=== PATIENT | male | born 1995 | race Caucasian/White ===

== ENCOUNTER 2017-02-08 21:06 | Inpatient (IN) | payer OTHER ==
[~2017-02-08] VITALS: Ht 175.3 cm; Wt 63.5 kg
[2017-02-09 02:00] VITALS: BP 131/70
--- NOTE | 2017-02-09 02:00 | NUR ---
INTAKE ASSESSMENT BP: 131/70 , HR:65, RR:16, SpO2: 100%, T:98 , pt denies pain Pt is in stable condition and able to be admitted on the unit. Unit protocols regarding medications and vital signs every 4 hours were explained. Pt verbalized understanding. Will continue admission upon arrival on the unit.
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
[2017-02-09 03:27] LABS: BASOPHILS % (AUTO) 0.5 % (0.0-2.0); EOSINOPHILS # (AUTO) 0.1 K/uL (0.0-0.7); EOSINOPHILS % (AUTO) 2.1 % (0.0-7.0); HEMATOCRIT 39.6 % (40-50); HEMOGLOBIN 13.9 G/DL (14.0-18.0); LYMPHOCYTES # (AUTO) 2.3 K/UL (0.8-4.8); LYMPHOCYTES % (AUTO) 40.7 % (20.5-51.5); MEAN CORPUSCULAR HGB CONC 35 g/dL (32.0-37.0); MEAN CORPUSCULAR VOLUME 91.1 FL (82.0-92.0); MONOCYTES # (AUTO) 0.5 K/UL (0.1-1.30); MONOCYTES % (AUTO) 9.5 % (0.0-11.0); NEUTROPHILS # (AUTO) 2.7 K/UL (1.8-8.9); NEUTROPHILS % (AUTO) 47.2 % (38.5-71.5); PLATELET COUNT (AUTO) 212 K/UL (150-450); RED BLOOD CELL COUNT(AUTO) 4.35 MIL/UL (4.7-6.1); WHITE BLOOD COUNT (AUTO) 5.6 K/UL (4.0-11.2)
[2017-02-09 03:57] LABS: *AMPHETAMINE, URINE NEGATIVE (NEGATIVE); *BARBITURATE, URINE NEGATIVE (NEGATIVE); *CANNABINOID, URINE NEGATIVE (NEGATIVE); *COCCAINE, URINE POSITIVE (NEGATIVE); *OPIATE, URINE POSITIVE (NEGATIVE); *PHENCYCLIDINE SCREEN,URINE NEGATIVE (NEGATIVE)
[2017-02-09 04:00] VITALS: BP 101/57
[2017-02-09 04:00] LABS: ALANINE AMINOTRANSFERASE 74 U/L (16-63); ALKALINE PHOSPHATASE 82 U/L (50-136); ASPARTATE AMINOTRANSFERASE 38 U/L (15-37); BILIRUBIN,TOTAL 0.7 mg/dL (0.2-1.0); CARBON DIOXIDE 33 mmol/L (21-32); CHLORIDE 102 mmol/L (98-107); GLUCOSE 110 mg/dL (74-106); POTASSIUM 3.6 mmol/L (3.5-5.1); TOTAL PROTEIN, SERUM 7.4 g/dL (6.4-8.2); UREA NITROGEN, BLOOD 10 mg/dL (7-18)
--- NOTE | 2017-02-09 04:00 | NUR ---
COWS DEFERRED COWS deferred. Pt is lying in bed with eyes closed noted to be asleep. Respirations 16, breathing is even and unlabored. Safety measures in place. Will monitor.
[2017-02-09 04:05] LABS: ETHANOL < 3 MG/DL (0-0)
--- NOTE | 2017-02-09 07:10 | NUR ---
END OF SHIFT Pt is a 22 year old male admitted on 02/09/17 for Heroin and Cocaine dependency. Pt is full code with NKA. He reports a PMHx of anxiety and depression (undiagnosed), tonsillectomy (age 13), left arm fracture (age 13). He did not receive or request any PRN medications. He slept a total of 4 hrs, Intake: 240mL, Void: x1, BM:0 COWS:1. Pt remains alert and oriented x4, breathing is even and unlabored. Safety measures in place. Endorsed to oncoming shift.
--- NOTE | 2017-02-09 07:30 | NUR ---
Start of shift note; Received report from night nurse. Patient is a 22 year old male admitted on 02/09/17 for Opiate dependence. Patient reported history of anxiety, depression, tonsillectomy. Patient is on full code status, NKA, on regular diet. Left AC closed abscess noted. Patient is on fall precautions. Bed in lowest position, call light within reach. Patient to start Subutex taper today depending on withdrawal symptoms. Will continue to monitor patient.
[2017-02-09 08:00] VITALS: BP 98/68
--- NOTE | 2017-02-09 09:30 | NUR ---
Nurse note; Patient is AOX4. Assessed patient. Patient's current COWS score is 6 manifested by sweating, muscle aches, runny nose, yawning. Patient's Subutex dose held per MD order d/t COWS score is <8. Will closely monitor patient. Addendum: 02/09/17 at 1142 by DAVID DRAPER LVN MD was notified.
--- NOTE | 2017-02-09 09:32 | NUR ---
Nurse note; Patient's UDS result came back positive for Benzodiazepine. Patient stated he used one time dose of Xanax prior to admission to [facility]. Patient denies dependence to Benzodiazepine. Patient also reported history of Hepatitis C. Will continue to monitor patient.
[2017-02-09 12:00] VITALS: BP 103/67
--- NOTE | 2017-02-09 13:13 | NUR ---
Nurse note; Patient is AOX4. Patient's current COWS score is 5 manifested by sweating, muscle aches, runny nose, yawning. Patient's Subutex dose held per MD order d/t COWS score is <8. Will closely monitor patient. MD was notified.
[2017-02-09 16:00] VITALS: BP 119/71
--- NOTE | 2017-02-09 19:30 | NUR ---
START OF SHIFT Patient is a 22 year old male admitted on 02/09/17 for Opiate dependence. Patient reported history of anxiety, depression, tonsillectomy. Patient is on full code status, NKA, on regular diet. Left AC closed abscess noted. Patient received in bed,A/O X 4. Patient has not received any Subutex today per day shift,his COWS score has been less than 8.Pt stated he might be ready for Subutex tonight.All safety measures in place. Bed is locked in the lowest position,side rails up x 2,call light within reach.Will continue to monitor.
--- NOTE | 2017-02-09 19:30 | NUR ---
End of shift note; Patient is AOX4. Patient is a 22 year old male admitted on 02/09/17 for Opiate dependence. Patient reported history of anxiety, depression, tonsillectomy. Patient is on full code status, NKA, on regular diet. Left AC closed abscess noted. Patient is on fall precautions. Bed in lowest position, call light within reach. Patient's Subutex doses were held due to COWS score is <8, MD was notified. All safety measures secured. Met all needs.
[2017-02-09 20:00] VITALS: BP 108/69
[2017-02-10] VITALS: BP 110/65
--- NOTE | 2017-02-10 00:51 | NUR ---
PRN MEDS PRN TYLENOL AND BENADRYL GIVEN ORDERED FOR C/O HEADACHE,5/10 AND INSOMNIA RESPECTIVELY.WILL MONITOR FOR EFFECTIVENESS.
--- NOTE | 2017-02-10 01:51 | NUR ---
PRN F/U PRN MEDS EFFECTIVE,PT IS RESTING IN BED WITH EYES CLOSED.NO S/S OF DISTRESS NOTED.
[2017-02-10 04:00] VITALS: BP 109/63
--- NOTE | 2017-02-10 06:49 | NUR ---
END OF SHIFT Patient is a 22 year old male admitted on 02/09/17 for Opiate dependence. Patient reported history of anxiety, depression, tonsillectomy. Patient is on full code status, NKA, on regular diet. Left AC closed abscess noted.Last COWS was 3.Pt started on Subutex last night,initial cows score was 9.PRN Benadryl and tylenol were given and were effective.Pt slept 9 hrs,fluid intake was 292 mls,voided x 1.All safety measures in place. Bed is locked in the lowest position,side rails up x 2,call light within reach.Will continue to monitor.
--- NOTE | 2017-02-10 07:50 | NUR ---
Start of shift note; Received report from night nurse. Patient is a 22 year old male admitted on 02/09/17 for Opiate dependence. Patient reported history of anxiety, depression, tonsillectomy. Patient is on full code status, NKA, on regular diet. Left AC closed abscess noted. Patient is on fall precautions. Bed in lowest position, call light within reach. Patient was placed on a 5 day Subutex taper. Patient's last COWS score is 9 at 2100. Will continue to monitor patient.
[2017-02-10 08:00] VITALS: BP 100/67
--- NOTE | 2017-02-10 09:00 | NUR ---
Nurse note; Re-evaluated patient's Left AC, small old closed abscess has improved. Patient denies pain. No necessary treatment noted. MD was notified upon admission.
[2017-02-10 09:06] LABS: HEPATITIS B SURFACE AG Negative (Negative)
--- NOTE | 2017-02-10 11:00 | NUR ---
MD communication; Patient was notified regarding Hep C result, patient to be educated by MD regarding results.
[2017-02-10 12:00] VITALS: BP 103/66
[2017-02-10 16:00] VITALS: BP 130/67
--- NOTE | 2017-02-10 18:40 | NUR ---
End of shift note; Patient is AOx4. Patient is a 22 year old male admitted on 02/09/17 for Opiate dependence. Patient reported history of anxiety, depression, tonsillectomy. Patient is on full code status, NKA, on regular diet. Patient remained compliant with treatment plan and medication regime. Medications were effective in reducing withdrawal symptoms. Patient's last COWS score is 6 at 1600. All safety measures secured. Met all needs.
--- NOTE | 2017-02-10 19:30 | NUR ---
START OF SHIFT Pt is a 22 y/o male admitted on 02/09/17 for opiate dependence. Pt was dependent on heroin 1 gm IV and cocaine 0.5 gm IV for the past 3 months. Pt also reports benzo usage x 1 prior to admission. Pt is full code, regular diet, NKA, and on fall precautions. Denies hx of seizures. Pt is on a 5 day Subutex taper, tolerating well. Pt reports PMH of anxiety and depression. Pt is on a 5 day Subutex taper, tolerating well. Upon assessment pt presents with increased HR, skin flushing, and moderate anxiety. Respirations 16, even and unlabored. Denies N/V/D. Denies chest pain or SOB. Medications due. Safety measures in place. Call light within reach. Will continue to monitor.
[2017-02-10 20:00] VITALS: BP 105/77
--- NOTE | 2017-02-10 22:56 | NUR ---
PRN BENADRYL 50 MG ADMINISTRATION Pt requests sleep aid, reports that he has difficulty staying asleep during the night. Safety measures in place. Call light within reach. Will continue to monitor.
--- NOTE | 2017-02-10 23:56 | NUR ---
PRN BENADRYL REASSESSMENT Pt is laying in bed with eyes closed. Respirations 16, even and unlabored. Safety measures in place. Call light within reach. Will continue to monitor.
--- NOTE | 2017-02-11 | NUR ---
PT REFUSED VITALS AND COWS DEFERRED Pt is laying in bed with eyes closed. Vitals refused. COWS deferred, to be assessed when pt is awake per orders. Respirations 16, even and unlabored. Safety measures in place. Call light within reach. Will continue to monitor.
--- NOTE | 2017-02-11 04:00 | NUR ---
VITALS REFUSED AND COW DEFERRED Pt laying in bed with eyes closed, pt refused vitals, COWS deferred, to be assessed when pt is fully awake per orders. Respirations 16, even and unlabored. Safety measures in place. Call light within reach. Will continue to monitor.
--- NOTE | 2017-02-11 07:15 | NUR ---
END OF SHIFT Pt is a 22 y/o male admitted on 02/09/17 for opiate dependence. Pt was dependent on heroin 1 gm IV and cocaine 0.5 gm IV for the past 3 months. Pt also reports benzo usage x 1 prior to admission. Pt is full code, regular diet, NKA, and on fall precautions. Denies hx of seizures. Pt is on a 5 day Subutex taper, tolerating well. Pt reports PMH of anxiety and depression. Pt is on a 5 day Subutex taper, tolerating well. Pt presented with increased HR, skin flushing, and moderate anxiety. Scheduled medications and PRN Benadryl administered, effective in S/S of withdrawal as verbalized by pt. Last COW 4. Slept 9 hours. Intake 1806 ml, void x 3, stool x 0. Safety measures in place. Call light within reach. Pts needs have been met. Endorsed to day shift nurse.
--- NOTE | 2017-02-11 07:56 | NUR ---
Start of shift note; Received report from night nurse. Patient is a 22 year old male admitted on 02/09/17 for Opiate dependence. Patient reported history of anxiety, depression, tonsillectomy. Patient is on full code status, NKA, on regular diet. Patient is on fall precautions. Bed in lowest position, call light within reach. Patient was placed on a 5 day Subutex taper, no adverse reactions noted. Patient's last COWS score is 4 at 2100. Patient had an uneventful night. Will continue to monitor patient.
[2017-02-11 08:00] VITALS: BP 116/68
[2017-02-11 12:00] VITALS: BP 110/62
[2017-02-11 16:00] VITALS: BP 119/67
--- NOTE | 2017-02-11 18:31 | NUR ---
End of shift note; Patient is AOx4. Patient is a 22 year old male admitted on 02/09/17 for Opiate dependence. Patient reported history of anxiety, depression, tonsillectomy. Patient is on full code status, NKA, on regular diet. Patient remained compliant with treatment plan and medication regime. Medications were effective in reducing withdrawal symptoms. Patient's last COWS score is 2 at 1600. All safety measures secured. Met all needs.
[2017-02-11 20:00] VITALS: BP 128/74
--- NOTE | 2017-02-11 22:56 | NUR ---
START OF SHIFT Pt is a 22 y/o male admitted on 02/09/17 for opiate dependence. Pt was dependent on heroin 1 gm IV and cocaine 0.5 gm IV for the past 3 months. Pt also reports benzo usage x 1 prior to admission. Pt is full code, regular diet, NKA, and on fall precautions. Denies hx of seizures. Pt is on a 5 day Subutex taper, tolerating well. Pt reports PMH of anxiety and depression. Pt is on a 5 day Subutex taper, tolerating well. Upon assessment pt presents with increased HR, skin flushing, moderate anxiety, and mild restlessness. Respirations 16, even and unlabored. Denies N/V/D. Denies chest pain or SOB. Medications due. Safety measures in place. Call light within reach. Will continue to monitor.
[2017-02-12] VITALS: BP 110/65
--- NOTE | 2017-02-12 04:00 | NUR ---
VITALS REFUSED AND COW DEFERRED Pt refused vitals. Pt is laying in bed with eyes closed, COW to be assessed when pt is fully awake per orders. Respirations 16, even and unlabored. Safety measures in place. Call light within reach. Will continue to monitor.
--- NOTE | 2017-02-12 07:15 | NUR ---
END OF SHIFT Pt is a 22 y/o male admitted on 02/09/17 for opiate dependence. Pt was dependent on heroin 1 gm IV and cocaine 0.5 gm IV for the past 3 months. Pt also reports benzo usage x 1 prior to admission. Pt is full code, regular diet, NKA, and on fall precautions. Denies hx of seizures. Pt is on a 5 day Subutex taper, tolerating well. Pt reports PMH of anxiety and depression. Pt is on a 5 day Subutex taper, tolerating well. Pt presented with increased HR, skin flushing, moderate anxiety, and mild restlessness. Scheduled medications administered, effective in S/S of withdrawal AEB COW 4 lowered to 2. No PRNS given. Slept 6 hours. Intake 1000 ml, void x 2, stool x 1. Safety measures in place Call light within reach. Pts needs have been met. Endorsed to day shift nurse.
--- NOTE | 2017-02-12 07:40 | NUR ---
Start of shift note; Received report from night nurse. Patient is a 22 year old male admitted on 02/09/17 for Opiate dependence. Patient reported history of anxiety, depression, tonsillectomy. Patient is on full code status, NKA, on regular diet. Patient is on fall precautions. Bed in lowest position, call light within reach. Patient was placed on a 5 day Subutex taper, no adverse reactions noted. Patient's last COWS score is 3 at 2100. Patient had an uneventful night. Patient slept for 8 hours. Will continue to monitor patient.
[2017-02-12 08:00] VITALS: BP 114/65
[2017-02-12 12:00] VITALS: BP 120/82
[2017-02-12 16:00] VITALS: BP 129/80
[2017-02-12 20:00] VITALS: BP 108/57
--- NOTE | 2017-02-12 20:00 | NUR ---
Start of shift note Received a 22 year old male admitted on 02/09/17 for Opiate dependence. Patient reported history of anxiety, depression, tonsillectomy. Patient is on full code status, NKA, on regular diet. Patient is on fall precautions. Bed in lowest position, call light within reach. Patient was placed on a 5 day Subutex taper. During the rounds @ 1930, No complaints as of the moment.We'll continue to monitor patient.
--- NOTE | 2017-02-12 21:00 | NUR ---
Clonidine held Px has RN=747/[id number], UT=76. Px didn't report any heightened anxiety. Clonidine 0.1 mg/tab, 1 tab held as standing order at 2100. We'll continue to monitor.
--- NOTE | 2017-02-12 23:54 | NUR ---
PRN Benadryl and Vistaril Px requested for meds to help him sleep tonight. Benadryl 50 mg/cap, 1 cap; Vistaril 25/cap, 1 cap given PO as PRN meds. We'll continue to monitor.
[2017-02-13] VITALS: BP 110/62
--- NOTE | 2017-02-13 01:00 | NUR ---
Reassessment Px is already sleeping at this moment. BP= 110/60, OR= 69, RR=14, O2sat= 100% RA. We'll continue to monitor.
[2017-02-13 04:00] VITALS: BP 112/61
--- NOTE | 2017-02-13 04:00 | NUR ---
COWS deferred COWS deferred at this moment due to the px is sleeping, to assess if the px is awake per doctor's order. We'll continue to monitor.
--- NOTE | 2017-02-13 07:05 | NUR ---
End of shift note 22 year old male was admitted on 02/09/17 for Opiate dependence. PMHx of anxiety, depression, tonsillectomy. Patient is on full code status, NKA, on regular diet. Patient is on fall precautions. Bed in lowest position, call light within reach. Patient was placed on a 5 day Subutex taper. During the shift, Clonidine 0.1 mg/tab, 1 tab held as standing order at 2100. Benadryl 50 mg/cap, 1 cap; Vistaril 25/cap, 1 cap given PO as PRN meds at 2354. Oral intake of 1,600 ml, voided 2x, no BM. Slept for 6 hrs. We'll continue to monitor patient.
--- NOTE | 2017-02-13 07:28 | NUR ---
Start of shift note; Received report from night nurse. Patient is a 22 year old male admitted on 02/09/17 for Opiate dependence. Patient reported history of anxiety, depression, tonsillectomy. Patient is on full code status, NKA, on regular diet. Patient is on fall precautions. Bed in lowest position, call light within reach. Patient was placed on a 5 day Subutex taper, no adverse reactions noted. Patient's last COWS score is 1 at 2100. Patient had an uneventful night. Patient slept for 7 hours. Will continue to monitor patient.
[2017-02-13 08:00] VITALS: BP 116/72
[2017-02-13 12:00] VITALS: BP 103/61
[2017-02-13] MEDS ORDERED: BUSP5TAB3 PO (13:25)
[2017-02-13] MEDS ORDERED: DIPH50CA37 PO (13:25)
[2017-02-13] MEDS ORDERED: IBUP-1955 PO (13:25)
[2017-02-13] MEDS ORDERED: HYDR-3895 PO (13:25)
[2017-02-13] MEDS ORDERED: CLON0.1T14 PO (13:25)
[2017-02-13] MEDS ORDERED: GABA-534 PO (13:25)
[2017-02-13] MEDS ORDERED: DICY20TA28 PO (13:25)
[2017-02-13] MEDS ORDERED: METH-406 PO (13:25)
[2017-02-13 16:00] VITALS: BP 112/69
--- NOTE | 2017-02-13 16:39 | NUR ---
Client was prompted to attend daily group therapy sessions by therapist. Client stated that he would attend.
--- NOTE | 2017-02-13 18:06 | NUR ---
End of shift note; Patient is AOx4. Patient is a 22 year old male admitted on 02/09/17 for Opiate dependence. Patient reported history of anxiety, depression, tonsillectomy. Patient is on full code status, NKA, on regular diet. Patient remained compliant with treatment plan and medication regime. Medications were effective in reducing withdrawal symptoms. Patient's last COWS score is 3 at 1600. All safety measures secured. Patient is medically cleared for discharge tomorrow. Met all needs.
--- NOTE | 2017-02-13 19:59 | NUR ---
Start of shift note Received a 22 year old male admitted on 02/09/17 for Opiate dependence. Patient reported history of anxiety, depression, and tonsillectomy. Patient is on full code status, NKA, on regular diet. Patient is on fall precautions. Bed in lowest position, call light within reach. Patient completed a 5 day Subutex taper. To be D/C tomorrow 02/14/2017. During the rounds @ 1930, No complaints as of the moment. We'll continue to monitor patient.
[2017-02-13 20:00] VITALS: BP 121/66
--- NOTE | 2017-02-13 22:46 | NUR ---
PRN Benadryl and Vistaril Px requested meds to help him sleep tonight. Benadryl 50mg/cap, 1 cap; Vistaril 25mg/cap, 1 cap given PO as PRN meds. We'll continue to monitor.
[2017-02-14] VITALS: BP 111/62
--- NOTE | 2017-02-14 | NUR ---
COWS deferred COWS deferred due to the px is asleep, to assess if the px is awake per doctor's order. Respirations are even and unlabored. We'll continue to monitor.
[2017-02-14 04:00] VITALS: BP 116/60
--- NOTE | 2017-02-14 07:12 | NUR ---
End of shift note 22 year old male admitted on 02/09/17 for Opiate dependence. Patient reported history of anxiety, depression, and tonsillectomy. Patient is on full code status, NKA, on regular diet. Patient is on fall precautions. Bed in lowest position, call light within reach. Patient completed a 5 day Subutex taper. To be D/C today, 02/14/2017. During the shift, px requested meds to help him sleep. Benadryl 50mg/cap, 1 cap and Vistaril 25mg/cap, 1 cap given PO as PRN meds. Oral intake of 1,600 ml, Voided 3x, no BM. Slept for 6.5 hrs. Last COWS2. Safety measures in place. Call light kept within reach. We'll continue to monitor patient.
--- NOTE | 2017-02-14 07:30 | NUR ---
start of shift note: received pt from restaurant shift leader nurse, pt is in stable condition at this time. pt's last cows 2. pt is set for discharge today. will assist pt in discharging. pt is admitted to [facility] for opiate/cocaine withdrawal. will continue to monitor pt for any changes and continue to meet pt's needs
[2017-02-14 08:39] VITALS: BP 108/68
--- NOTE | 2017-02-14 09:15 | NUR ---
discharge note: pt left the unit im stable condition no s/s of pain, discomfort or any withdrawal symptoms. pt teaching administered and pt verbalized understanding. pt's V/S WNL. pt will be transferred to [facility] via private car
== END 2017-02-14 09:15 | disposition other institution (70) | DRG 895 ==
LOC: SRC 02-09 01:28
PROVIDERS: ADMIT Internal Medicine; ATTEND Internal Medicine
PROC: HZ2ZZZZ Detoxification Services for Substance Abuse Treatment (ICD-10-PCS; principal; 2017-02-09)
PROC: HZ41ZZZ Group Counseling for Substance Abuse Treatment, Behavioral (ICD-10-PCS; 2017-02-10)
PROC: HZ31ZZZ Individual Counseling for Substance Abuse Treatment, Behavioral (ICD-10-PCS; 2017-02-11)
DX: F11.23 Opioid dependence with withdrawal (principal); E87.3 Alkalosis; F14.20 Cocaine dependence, uncomplicated; E86.0 Dehydration; F41.9 Anxiety disorder, unspecified; F32.9 Major depressive disorder, single episode, unspecified; F17.210 Nicotine dependence, cigarettes, uncomplicated; B19.20 Unspecified viral hepatitis C without hepatic coma; F13.10 Sedative, hypnotic or anxiolytic abuse, uncomplicated; D64.9 Anemia, unspecified
CPT/HCPCS: 36415; 70030-TC; 80307; 80346; 80353; 80361; 83735; 84443; 85025; 86580; 86592; 86705; 86803; 87340; 87806; G0480; Q0163